=== PATIENT | female | born 1930 | race Caucasian/White ===

== ENCOUNTER 2018-02-16 16:10 | Emergency (ER) | payer MEDICARE ==
[~2018-02-16] VITALS: Ht 157.5 cm; Wt 70.0 kg
[2018-02-16 16:28] VITALS: BP 141/68
[2018-02-16] MEDS ORDERED: SODIUM CHLORIDE FLUSH 10ML SYR IVF ONE (17:00)
[2018-02-16 17:16] LABS: BASOPHILS # (AUTO) 0.03 x10^3/uL (0-0.1); BASOPHILS % (AUTO) 1 % (0-1); EOSINOPHILS % (AUTO) 3 % (1-7); LYMPHOCYTES # (AUTO) 1.85 x10^3/uL (1-3.4); LYMPHOCYTES % (AUTO) 31 % (22-44); MD NO; MEAN CORPUSCULAR HEMOGLOBIN 28.9 pg (27.0-34.8); MEAN CORPUSCULAR HGB CONC 32.9 g/dL (32.4-35.8); MEAN CORPUSCULAR VOLUME 87.6 fL (80-100); MONOCYTES # (AUTO) 0.44 x10^3/uL (0.2-0.8); MONOCYTES % (AUTO) 7 % (2-9); NEUTROPHILS # (AUTO) 3.42 x10^3/uL (1.8-6.8); NEUTROPHILS % (AUTO) 58 % (42-75); PLATELET COUNT 206 x10^3/uL (130-400); RED BLOOD COUNT 3.91 x10^6/uL (3.82-5.3); RED CELL DISTRIBUTION WIDTH 15.1 % (9.6-15.2)
[2018-02-16 17:27] LABS: ALBUMIN 3.5 g/dL (3.4-5.0); ANION GAP 6 mmol/L (5-15); CALCIUM 8.2 mg/dL (8.5-10.1); CHLORIDE 109 mmol/L (98-107)
[2018-02-16 17:32] LABS: CREATININE 0.93 mg/dL (0.55-1.02); TROPONIN I < 0.015 ng/mL (0.000-0.045)
[2018-02-16 17:33] LABS: INTERNATIONAL NORMALIZED RATIO 1.03 (0.93-1.1); PROTHROMBIN TIME 10.7 Seconds (9.6-11.5)
== END 2018-02-16 19:18 | disposition home or self-care (01) ==
LOC: ED 19:05
DX: R06.00 Dyspnea, unspecified (principal); R53.1 Weakness; I50.9 Heart failure, unspecified
CPT/HCPCS: 36415; 71045; 80048; 82040; 83880; 84484; 85025; 85610; 85730; 93005; 99285

== ENCOUNTER 2018-04-21 10:12 | Inpatient (IN) | payer MEDICARE ==
[~2018-04-21] VITALS: Ht 160 cm; Wt 75.6 kg
[2018-04-21] MEDS ORDERED: SODIUM CHLORIDE 0.9% 1,000ML IVBOLUS ONE (11:00)
[2018-04-21] MEDS ORDERED: SODIUM CHLORIDE FLUSH 10ML SYR IVF ONE (11:00)
[2018-04-21 11:41] LABS: ALBUMIN 3.3 g/dL (3.4-5.0); ANION GAP 8 mmol/L (5-15); CALCIUM 8.4 mg/dL (8.5-10.1); CHLORIDE 107 mmol/L (98-107)
[2018-04-21 11:45] LABS: ALANINE AMINOTRANSFERASE 14 U/L (12-78); ALKALINE PHOSPHATASE 66 U/L (45-117); BILIRUBIN,TOTAL 0.4 mg/dL (0.2-1.0); CREATININE 0.81 mg/dL (0.55-1.02); TOTAL PROTEIN 6.6 g/dL (6.4-8.2)
[2018-04-21 12:33] LABS: BASOPHILS # (AUTO) 0.03 x10^3/uL (0-0.1); BASOPHILS % (AUTO) 0 % (0-1); EOSINOPHILS # (AUTO) 0.08 x10^3/uL (0-0.4); EOSINOPHILS % (AUTO) 1 % (1-7); LYMPHOCYTES # (AUTO) 1.52 x10^3/uL (1-3.4); LYMPHOCYTES % (AUTO) 17 % (22-44); MD SCAN; MEAN CORPUSCULAR HEMOGLOBIN 28.9 pg (27.0-34.8); MEAN CORPUSCULAR HGB CONC 33.1 g/dL (32.4-35.8); MEAN CORPUSCULAR VOLUME 87.1 fL (80-100); MEAN PLATELET VOLUME 9.4 fL (7.4-10.4); MONOCYTES # (AUTO) 0.48 x10^3/uL (0.2-0.8); MONOCYTES % (AUTO) 5 % (2-9); NEUTROPHILS # (AUTO) 6.67 x10^3/uL (1.8-6.8); NEUTROPHILS % (AUTO) 76 % (42-75); PLATELET COUNT 179 x10^3/uL (130-400)
[2018-04-21] MEDS ORDERED: NS + 20MEQ KCL 1,000 ML IV SCH (13:07)
[2018-04-21] MEDS ORDERED: ONDANSETRON 2MG/ML, 2ML IVPush PRN (13:30)
[2018-04-21] MEDS ORDERED: hydrALAzine 20 MG/ML, 1ML IV PRN (13:30)
[2018-04-21] MEDS ORDERED: DOCUSATE 100 MG CAPSULE PO PRN (13:30)
[2018-04-21] MEDS ORDERED: LABETALOL 5MG/ML, 20ML IVPush PRN (13:30)
[2018-04-21] MEDS ORDERED: ENALAPRILAT 1.25 MG/ML, 2ML IV PRN (13:30)
[2018-04-21] MEDS ORDERED: MORPHINE SULFATE 4 MG/ML, 1ML IVPush PRN (13:30)
[2018-04-21] MEDS ORDERED: ACETAMINOPHEN 325 MG TABLET PO PRN (13:30)
[2018-04-21 13:56] VITALS: BP 159/80
[2018-04-21] MEDS: ENOXAPARIN 40 MG/0.4 ML SQ SCH (14:12)
[2018-04-21] MEDS ORDERED: ALPR0.25 PO (14:15)
[2018-04-21] MEDS ORDERED: CARV6.2512 PO (14:15)
[2018-04-21] MEDS ORDERED: FLUO5DRO2 EACHEYE (14:15)
[2018-04-21] MEDS ORDERED: BRIM5DRO3 EACHEYE (14:15)
[2018-04-21] MEDS ORDERED: MELO15TA24 PO (14:15)
[2018-04-21] MEDS ORDERED: LISI-170 PO (14:15)
[2018-04-21] MEDS ORDERED: OMEP-110 PO (14:15)
[2018-04-21] MEDS ORDERED: LATA2.5D3 EACHEYE (14:15)
[2018-04-21] MEDS ORDERED: TRAM50TA2 PO (14:15)
[2018-04-21] MEDS ORDERED: FURO20TA3 PO (14:15)
[2018-04-21 17:40] VITALS: BP 165/47
[2018-04-21] MEDS: HYDROcodone/APAP 5/325 TABLET PO PRN (17:40)
[2018-04-21] MEDS: POLYETHYLENE GLYCOL 17 GM PACKET PO PRN (17:41)
[2018-04-21] MEDS: CARVEDILOL 12.5 MG TABLET PO SCH (17:41)
[2018-04-21 18:46] LABS: CULTURE INDICATED? YES; MICROSCOPIC INDICATED
[2018-04-21 19:22] VITALS: BP 113/73
[2018-04-21] MEDS: TEMPLATE NON-FORMULARY MED. (Brimonidine Tartrate** (Alphagan P**) 1 DROP(S)) EACHEYE SCH (21:00)
[2018-04-21] MEDS: FLUOROMETHOLONE EACHEYE SCH (21:00)
[2018-04-21] MEDS: LATANOPROST OPHTH 0.005%, 2.5ML EACHEYE SCH (22:55)
[2018-04-22 02:15] VITALS: BP 137/74
[2018-04-22] MEDS: HYDROcodone/APAP 5/325 TABLET PO PRN ×2 (02:26→22:49)
[2018-04-22] MEDS: CARVEDILOL 12.5 MG TABLET PO SCH ×2 (05:40→18:14)
[2018-04-22 06:50] VITALS: BP 102/61
[2018-04-22] MEDS: TEMPLATE NON-FORMULARY MED. (Brimonidine Tartrate** (Alphagan P**) 1 DROP(S)) EACHEYE SCH ×2 (09:00→20:56)
[2018-04-22] MEDS: SENNA/DOCUSATE TABLET PO SCH (09:00)
[2018-04-22] MEDS: FLUOROMETHOLONE EACHEYE SCH ×2 (09:00→20:56)
[2018-04-22] MEDS ORDERED: MELOXICAM 15 MG TABLET PO SCH (09:00)
[2018-04-22] MEDS: LISINOPRIL 20 MG TABLET PO SCH (09:46)
[2018-04-22 13:05] VITALS: BP 133/67
[2018-04-22] MEDS: ENOXAPARIN 40 MG/0.4 ML SQ SCH (14:41)
[2018-04-22 18:57] VITALS: BP 121/61
[2018-04-22] MEDS: POLYETHYLENE GLYCOL 17 GM PACKET PO PRN (20:56)
[2018-04-22] MEDS: LATANOPROST OPHTH 0.005%, 2.5ML EACHEYE SCH (20:56)
[2018-04-23 03:15] VITALS: BP 120/69
[2018-04-23 07:39] VITALS: BP 148/76
[2018-04-23] MEDS: TEMPLATE NON-FORMULARY MED. (Brimonidine Tartrate** (Alphagan P**) 1 DROP(S)) EACHEYE SCH (09:00)
[2018-04-23] MEDS: FLUOROMETHOLONE EACHEYE SCH (09:00)
[2018-04-23] MEDS: SENNA/DOCUSATE TABLET PO SCH (09:10)
[2018-04-23] MEDS: LISINOPRIL 20 MG TABLET PO SCH (09:10)
[2018-04-23] MEDS: CARVEDILOL 12.5 MG TABLET PO SCH (09:10)
[2018-04-23] MEDS ORDERED: CARV12.543 PO (14:02)
== END 2018-04-23 16:10 | disposition home health service (06) | DRG 92 ==
LOC: ED 12:04 → EDIP 12:05 → ED 12:09 → 5SO 13:40 → DCLOUNGE 04-23 15:47
PROVIDERS: ADMIT Internal Medicine; ATTEND Family Medicine
DX: R27.0 Ataxia, unspecified (principal); I47.1 Supraventricular tachycardia; I11.0 Hypertensive heart disease with heart failure; I48.91 Unspecified atrial fibrillation; I50.9 Heart failure, unspecified; F41.9 Anxiety disorder, unspecified; Z95.810 Presence of automatic (implantable) cardiac defibrillator; Z85.3 Personal history of malignant neoplasm of breast; Z91.041 Radiographic dye allergy status
CPT/HCPCS: 36415; 80053; 81001; 83605; 84443; 85025; 87040; 87086; 93005; 93306; 96360; 96374; G0378; J1650; J2405; J3480; J7030

== ENCOUNTER 2018-10-01 17:15 | Inpatient (IN) | payer MEDICARE ==
[~2018-10-01] VITALS: Ht 160 cm; Wt 73.2 kg
[~2018-10-01 17:15] MED LIST: ALPR0.25 PO; BRIM5DRO3 EACHEYE; CARV12.543 PO; CARV6.2512 PO; FLUO5DRO2 EACHEYE; FURO20TA3 PO; LATA2.5D3 EACHEYE; LISI-170 PO; MELO15TA24 PO; OMEP-110 PO; TRAM50TA2 PO
[2018-10-01] MEDS ORDERED: SODIUM CHLORIDE FLUSH 10ML SYR IVF ONE (18:00)
--- NOTE | 2018-10-01 18:20 | NUR ---
IV ACCESS AND EKG COMPLETED.
[2018-10-01 18:34] LABS: BASOPHILS # (AUTO) 0.02 x10^3/uL (0-0.1); BASOPHILS % (AUTO) 0 % (0-1); EOSINOPHILS # (AUTO) 0.08 x10^3/uL (0-0.4); EOSINOPHILS % (AUTO) 1 % (1-7); LYMPHOCYTES # (AUTO) 1.83 x10^3/uL (1-3.4); LYMPHOCYTES % (AUTO) 18 % (22-44); MD NO; MEAN CORPUSCULAR HEMOGLOBIN 28.9 pg (27.0-34.8); MEAN CORPUSCULAR HGB CONC 33.6 g/dL (32.4-35.8); MEAN CORPUSCULAR VOLUME 86.2 fL (80-100); MEAN PLATELET VOLUME 9.3 fL (7.4-10.4); MONOCYTES # (AUTO) 1.14 x10^3/uL (0.2-0.8); MONOCYTES % (AUTO) 11 % (2-9); NEUTROPHILS # (AUTO) 7.43 x10^3/uL (1.8-6.8); NEUTROPHILS % (AUTO) 71 % (42-75); PLATELET COUNT 176 x10^3/uL (130-400); RED BLOOD COUNT 4.33 x10^6/uL (3.82-5.3); RED CELL DISTRIBUTION WIDTH 15.7 % (9.6-15.2)
[2018-10-01 18:43] LABS: ALBUMIN 3.3 g/dL (3.4-5.0); ANION GAP 5 mmol/L (5-15); CALCIUM 8.4 mg/dL (8.5-10.1); CHLORIDE 108 mmol/L (98-107)
[2018-10-01 18:46] LABS: ALANINE AMINOTRANSFERASE 12 U/L (12-78); ALKALINE PHOSPHATASE 88 U/L (45-117); BILIRUBIN,TOTAL 0.4 mg/dL (0.2-1.0); CREATININE 0.86 mg/dL (0.55-1.02)
--- NOTE | 2018-10-01 18:55 | NUR ---
REPORT RECEIVED FROM JORGE LUIS LARA. ASSUMED CARE OF PT
--- NOTE | 2018-10-01 19:22 | NUR ---
ATTEMPTED STRAIGHT CATH ONE TIME, UNSUCCESSFUL. AT BEDSIDE
--- NOTE | 2018-10-01 19:23 | NUR ---
PER DR. BOSE, UA CAN WAIT. CLEAN CATCH IS ACCEPTABLE AT THIS TIME. PT TO BE ADMITTED
--- NOTE | 2018-10-01 19:55 | NUR ---
REPORT GIVEN TO JORGE LUIS CORREA
[2018-10-01] MEDS ORDERED: SODIUM CHLORIDE FLUSH 10ML SYR IVF PRN (20:00)
[2018-10-01] MEDS ORDERED: SODIUM CHLORIDE 0.9% 1,000 ML IV SCH (21:35)
[2018-10-01 21:49] VITALS: BP 162/83
[2018-10-01] MEDS ORDERED: LATANOPROST OPHTH 0.005%, 2.5ML EACHEYE SCH (22:00)
[2018-10-01] MEDS ORDERED: BISACODYL 10 MG SUPP PR PRN (22:00)
[2018-10-01] MEDS: FLUOROMETHOLONE EACHEYE SCH (22:00)
[2018-10-01] MEDS: BRIMONIDINE TARTRATE OPHTH 0.15%, 5ML EACHEYE SCH (22:44)
[2018-10-01] MEDS: LACTULOSE 10 GM/15 ML UDC PO SCH (22:45)
[2018-10-01] MEDS: SENNA/DOCUSATE TABLET PO SCH (22:45)
[2018-10-01] MEDS: HEPARIN 5,000 UNITS/ML, 1ML SQ SCH (22:47)
[2018-10-02 02:10] VITALS: BP 116/67
[2018-10-02] MEDS ORDERED: MORPHINE SULFATE 4 MG/ML, 1ML IVPush ONE (04:00)
[2018-10-02 04:16] VITALS: BP 130/69
[2018-10-02 04:52] LABS: TROPONIN I < 0.015 ng/mL (0.000-0.045)
[2018-10-02] MEDS: HEPARIN 5,000 UNITS/ML, 1ML SQ SCH ×2 (05:01→14:00)
[2018-10-02 05:07] VITALS: BP 128/72
[2018-10-02] MEDS ORDERED: CARVEDILOL 12.5 MG TABLET PO SCH (06:00)
[2018-10-02 07:15] VITALS: BP 125/64
[2018-10-02 08:05] LABS: ALANINE AMINOTRANSFERASE 11 U/L (12-78); ALBUMIN 2.9 g/dL (3.4-5.0); ANION GAP 4 mmol/L (5-15); CALCIUM 7.9 mg/dL (8.5-10.1); CHLORIDE 110 mmol/L (98-107)
[2018-10-02 08:09] LABS: BASOPHILS # (AUTO) 0.02 x10^3/uL (0-0.1); BASOPHILS % (AUTO) 0 % (0-1); EOSINOPHILS # (AUTO) 0.08 x10^3/uL (0-0.4); EOSINOPHILS % (AUTO) 1 % (1-7); LYMPHOCYTES # (AUTO) 1.56 x10^3/uL (1-3.4); LYMPHOCYTES % (AUTO) 22 % (22-44); MD NO; MEAN CORPUSCULAR HEMOGLOBIN 28.6 pg (27.0-34.8); MEAN CORPUSCULAR HGB CONC 32.9 g/dL (32.4-35.8); MEAN PLATELET VOLUME 9.5 fL (7.4-10.4); MONOCYTES # (AUTO) 0.79 x10^3/uL (0.2-0.8); MONOCYTES % (AUTO) 11 % (2-9); NEUTROPHILS # (AUTO) 4.53 x10^3/uL (1.8-6.8); NEUTROPHILS % (AUTO) 65 % (42-75); PLATELET COUNT 152 x10^3/uL (130-400); RED BLOOD COUNT 4.01 x10^6/uL (3.82-5.3)
[2018-10-02 08:11] LABS: ALKALINE PHOSPHATASE 75 U/L (45-117); BILIRUBIN,TOTAL 0.6 mg/dL (0.2-1.0); CREATININE 0.65 mg/dL (0.55-1.02); TOTAL PROTEIN 6.2 g/dL (6.4-8.2); TROPONIN I < 0.015 ng/mL (0.000-0.045)
[2018-10-02] MEDS: FLUOROMETHOLONE EACHEYE SCH (09:00)
[2018-10-02] MEDS ORDERED: LISINOPRIL 20 MG TABLET PO SCH (09:00)
[2018-10-02] MEDS ORDERED: FAMOTIDINE 20 MG TABLET PO SCH ×2 (09:00→21:00)
[2018-10-02] MEDS ORDERED: OMEPRAZOLE 20 MG CAPSULE.DR PO SCH (09:00)
[2018-10-02] MEDS: BRIMONIDINE TARTRATE OPHTH 0.15%, 5ML EACHEYE SCH (09:11)
[2018-10-02] MEDS: LACTULOSE 10 GM/15 ML UDC PO SCH (09:11)
[2018-10-02] MEDS: SENNA/DOCUSATE TABLET PO SCH (09:14)
[2018-10-02 12:07] LABS: TROPONIN I < 0.015 ng/mL (0.000-0.045)
[2018-10-02 13:30] VITALS: BP 143/82
[2018-10-02] MEDS ORDERED: SENN1TAB8 PO (16:15)
[2018-10-02] MEDS ORDERED: POLY17PO5 PO (16:15)
[2018-10-02 16:22] LABS: MICROSCOPIC NOT IND
[2018-10-02 16:27] LABS: CULTURE INDICATED? NO
== END 2018-10-02 16:55 | disposition home or self-care (01) | DRG 392 ==
LOC: ED 18:25 → EDIP 19:33 → 3NE 20:18 → DCLOUNGE 10-02 16:47
PROVIDERS: ADMIT Internal Medicine; ATTEND Internal Medicine
PROC: 0T9B70Z Drainage of Bladder with Drainage Device, Via Natural or Artificial Opening (ICD-10-PCS; principal; 2018-10-02)
DX: K59.00 Constipation, unspecified (principal); I11.0 Hypertensive heart disease with heart failure; F41.9 Anxiety disorder, unspecified; I48.91 Unspecified atrial fibrillation; I50.9 Heart failure, unspecified; M19.90 Unspecified osteoarthritis, unspecified site; F11.90 Opioid use, unspecified, uncomplicated; M50.30 Other cervical disc degeneration, unspecified cervical region; K21.9 Gastro-esophageal reflux disease without esophagitis; Z85.3 Personal history of malignant neoplasm of breast; Z95.810 Presence of automatic (implantable) cardiac defibrillator
CPT/HCPCS: 36415; 72050; 74022; 80053; 81003; 83690; 84484; 85025; 90656; 93005; 99285; G0378; J1644; J7030